=== PATIENT | female | born 1935 | race Hispanic/Latino ===

== ENCOUNTER 2021-05-14 23:09 | Inpatient (IN) | payer OTHER, MEDICARE ==
[~2021-05-14] VITALS: Ht 152.4 cm; Wt 63.7 kg
[2021-05-15] MEDS ORDERED: ONDANSETRON 4MG INJ IVP ONE
[2021-05-15] MEDS ORDERED: MORPHINE 4 MG SYG IVP ONE
[2021-05-15] MEDS ORDERED: LACTATED RINGERS 1000ML 1,000 ML IV ONE
[2021-05-15 00:02] LABS: BASOPHILS % (AUTO) 0.1 % (0.0-5.0); HEMATOCRIT 28.3 % (36-48); LYMPHOCYTES % (AUTO) 7.3 % (21.0-51.0); MEAN CORPUSCULAR HEMOGLOBIN 30.2 pg (27.0-33.0); MEAN CORPUSCULAR HGB CONC 34.3 g/dL (32.0-36.0); MEAN CORPUSCULAR VOLUME 88.2 fL (79-99); MONOCYTES % (AUTO) 7.4 % (3.0-13.0); NEUTROPHILS % (AUTO) 84.7 % (40.0-77.0); PLATELET COUNT (AUTO) 254 K/uL (130-400); RED BLOOD CELL COUNT(AUTO) 3.21 MIL/uL (4.00-5.50); RED CELL DISTRIBUTION WIDTH 12.1 % (11.0-15.5); WHITE BLOOD COUNT (AUTO) 20.5 K/uL (4.8-10.8)
[2021-05-15 00:13] LABS: CREATININE 1.2 mg/dL (0.5-1.5); POTASSIUM 4.5 mmol/L (3.5-5.1)
[2021-05-15 00:16] LABS: PROTHROMBIN TIME 10.9 SEC (9.6-11.6)
[2021-05-15 00:17] LABS: PARTIAL THROMBOPLASTIN TIME 22.1 SEC (26.3-35.5)
[2021-05-15 00:36] LABS: ALBUMIN 4.4 g/dL (3.5-5.0); BILIRUBIN,TOTAL 0.5 mg/dL (0.2-1.0); MAGNESIUM 1.7 mg/dL (1.80-2.40); TOTAL PROTEIN, SERUM 8.2 g/dL (6.0-8.3)
[2021-05-15] MEDS ORDERED: NITROGLYCERIN 1GM OINT 1 INCH/1GM TD ONE (03:19)
[2021-05-15] MEDS ORDERED: 0.9%NACL 1000ML 1,000 ML IV ONE (03:20)
[2021-05-15] MEDS: 0.9%NACL 1000ML 1,000 ML IV SCH ×2 (03:30→16:59)
[2021-05-15 03:35] VITALS: BP 132/67
[2021-05-15] MEDS ORDERED: CEFTRIAXONE 1G VIAL 1 GM in 0.9%NACL 100ML 100 ML IVP SCH (04:00)
[2021-05-15] MEDS ORDERED: PRAV20TA4 PO (04:19)
[2021-05-15] MEDS ORDERED: ALEN70TA80 PO (04:19)
[2021-05-15] MEDS ORDERED: ESOM40CA54 PO (04:19)
[2021-05-15] MEDS ORDERED: LISI1TAB51 PO (04:19)
[2021-05-15] MEDS ORDERED: LORA10TA7 PO (04:19)
[2021-05-15] MEDS ORDERED: NAPR-1192 PO (04:19)
[2021-05-15] MEDS ORDERED: DULO20CA18 PO (04:19)
[2021-05-15] MEDS ORDERED: ACET-2743 PO (04:19)
[2021-05-15] MEDS ORDERED: GLUCAGON 1MG KIT 1 MG ML IM PRN (04:30)
[2021-05-15] MEDS ORDERED: DEXTROSE 50%-WATER 50 ML DISP.SYRIN IV PRN (04:30)
[2021-05-15] MEDS: MORPHINE 2 MG SYG IVP PRN ×2 (04:31→16:59)
[2021-05-15] MEDS ORDERED: NITROGLYCERIN 1GM OINT 1 INCH/1GM TD SCH (06:00)
[2021-05-15] MEDS: INSULIN R PO SS1 SQ SCH ×4 (06:35→21:00)
[2021-05-15 07:30] VITALS: BP 100/52
[2021-05-15] MEDS: ASPIRIN 325MG TAB PO SCH (08:43)
[2021-05-15 11:00] VITALS: BP 115/53
[2021-05-15] MEDS ORDERED: MAGNESIUM 2GM PREMIX 50ML 50 ML IV PRN (12:00)
[2021-05-15] MEDS: METOPROLOL TARTRATE 25 MG TAB PO SCH ×3 (14:00→20:18)
[2021-05-15] MEDS ORDERED: CEFTRIAXONE 1G VIAL IVP SCH (16:00)
[2021-05-15 16:25] VITALS: BP 117/61
[2021-05-15] MEDS: NITROGLYCERIN 1GM OINT 1 INCH/1GM TD SCH ×3 (16:33→23:02)
[2021-05-15] MEDS: ATORVASTATIN 20 MG TABLET PO SCH (16:34)
[2021-05-15] MEDS: PANTOPRAZOLE 40 MG TAB DR PO SCH (16:35)
[2021-05-15 17:19] LABS: APPEARANCE,URINE Cloudy (CLEAR); BILIRUBIN,URINE Negative (NEGATIVE); COLOR,URINE Yellow (YELLOW); GLUCOSE, URINE (UA) Negative (NEGATIVE); KETONES,URINE Negative (NEGATIVE); LEUKOCYTE ESTERASE ,URINE Large (NEGATIVE); NITRATE,URINE Negative (NEGATIVE); OCCULT BLOOD,URINE Negative (NEGATIVE); PH,URINE 5.5 (5.0-8.0); PROTEIN,URINE Negative (NEGATIVE)
[2021-05-15 17:37] LABS: RBC,URINE 0-1 /HPF (0-1)
[2021-05-15 17:38] LABS: BACTERIA,URINE Few /HPF (None Seen); SQUAMOUS EPITHELIAL CELL,UR Moderate /HPF (0-2); WBC,URINE 26-50 /HPF (0-1)
[2021-05-15 17:39] LABS: MUCUS,URINE Rare LPF (None Seen)
[2021-05-15 21:15] VITALS: BP 101/54
[2021-05-16 00:17] VITALS: BP 102/55
[2021-05-16 04:17] VITALS: BP 100/52
[2021-05-16 04:40] LABS: HEMOGLOBIN A1C 7.3 % (4.0-6.0)
[2021-05-16] MEDS: NITROGLYCERIN 1GM OINT 1 INCH/1GM TD SCH ×3 (05:05→17:16)
[2021-05-16] MEDS: INSULIN R PO SS1 SQ SCH ×4 (05:12→20:25)
[2021-05-16] MEDS: 0.9%NACL 1000ML 1,000 ML IV SCH ×2 (06:10→19:30)
[2021-05-16 06:37] LABS: BASOPHILS % (AUTO) 0.5 % (0.0-5.0); EOSINOPHILS % (AUTO) 1.6 % (0.0-8.0); HEMATOCRIT 21.1 % (36-48); LYMPHOCYTES % (AUTO) 26.3 % (21.0-51.0); MEAN CORPUSCULAR HEMOGLOBIN 30.3 pg (27.0-33.0); MEAN CORPUSCULAR HGB CONC 34.1 g/dL (32.0-36.0); MEAN CORPUSCULAR VOLUME 88.7 fL (79-99); MONOCYTES % (AUTO) 11.9 % (3.0-13.0); NEUTROPHILS % (AUTO) 59.2 % (40.0-77.0); PLATELET COUNT (AUTO) 150 K/uL (130-400); RED BLOOD CELL COUNT(AUTO) 2.38 MIL/uL (4.00-5.50); RED CELL DISTRIBUTION WIDTH 12.5 % (11.0-15.5); WHITE BLOOD COUNT (AUTO) 8.9 K/uL (4.8-10.8)
[2021-05-16 07:11] LABS: ALBUMIN 3.2 g/dL (3.5-5.0); BILIRUBIN,TOTAL 0.5 mg/dL (0.2-1.0); MAGNESIUM 2.2 mg/dL (1.80-2.40); POTASSIUM 4.1 mmol/L (3.5-5.1); TOTAL PROTEIN, SERUM 6.2 g/dL (6.0-8.3)
[2021-05-16 07:30] VITALS: BP 101/51
[2021-05-16] MEDS: METOPROLOL TARTRATE 25 MG TAB PO SCH ×3 (08:46→20:20)
[2021-05-16] MEDS: ASPIRIN 325MG TAB PO SCH (08:46)
[2021-05-16] MEDS: PANTOPRAZOLE 40 MG TAB DR PO SCH (08:46)
[2021-05-16] MEDS: ATORVASTATIN 20 MG TABLET PO SCH (08:46)
[2021-05-16] MEDS: MORPHINE 2 MG SYG IVP PRN ×2 (09:11→17:29)
[2021-05-16 11:00] VITALS: BP 112/53
[2021-05-16 16:00] VITALS: BP 113/47
[2021-05-16 19:00] VITALS: BP 116/61
[2021-05-17] VITALS: BP 110/61
[2021-05-17] MEDS: MORPHINE 2 MG SYG IVP PRN ×3 (02:41→22:53)
[2021-05-17 03:52] LABS: MEAN CORPUSCULAR HEMOGLOBIN 29.9 pg (27.0-33.0); MEAN CORPUSCULAR HGB CONC 33.3 g/dL (32.0-36.0); MEAN CORPUSCULAR VOLUME 89.7 fL (79-99); RED BLOOD CELL COUNT(AUTO) 2.34 MIL/uL (4.00-5.50); RED CELL DISTRIBUTION WIDTH 12.4 % (11.0-15.5); WHITE BLOOD COUNT (AUTO) 10.3 K/uL (4.8-10.8)
[2021-05-17 04:00] VITALS: BP 119/56
[2021-05-17 04:08] LABS: CREATININE 0.9 mg/dL (0.5-1.5); POTASSIUM 4.8 mmol/L (3.5-5.1)
[2021-05-17] MEDS: INSULIN R PO SS1 SQ SCH ×3 (04:15→20:22)
[2021-05-17] MEDS ORDERED: CEFTRIAXONE 1G VIAL IVP SCH (08:00)
[2021-05-17] MEDS: ATORVASTATIN 20 MG TABLET PO SCH (08:22)
[2021-05-17] MEDS: PANTOPRAZOLE 40 MG TAB DR PO SCH (08:22)
[2021-05-17] MEDS: ISOSORBIDE MONO 30MG SR TAB PO SCH (08:22)
[2021-05-17] MEDS: ASPIRIN 81 MG EC TAB PO SCH (08:22)
[2021-05-17 08:23] VITALS: BP 134/52
[2021-05-17] MEDS: 0.9%NACL 1000ML 1,000 ML IV SCH (08:24)
[2021-05-17] MEDS: METOPROLOL TARTRATE 25 MG TAB PO SCH ×2 (08:25→20:21)
[2021-05-17] MEDS: LISINOPRIL 5 MG TABLET PO SCH (09:30)
[2021-05-17] MEDS: LEVOFLOXACIN 500 MG TABLET PO SCH (10:27)
[2021-05-17 11:18] VITALS: BP 118/62
[2021-05-17] MEDS ORDERED: TRAMADOL HCL 50 MG TABLET PO PRN (12:00)
[2021-05-17] MEDS ORDERED: FUROSEMIDE 20MG VIAL IV SCH (15:00)
[2021-05-17 16:00] VITALS: BP 136/68
[2021-05-17 19:00] VITALS: BP 143/68
[2021-05-17 21:41] LABS: HEMATOCRIT 24.4 % (36-48)
[2021-05-18] VITALS: BP 132/58
[2021-05-18 04:00] VITALS: BP 126/56
[2021-05-18 04:26] LABS: BASOPHILS % (AUTO) 0.4 % (0.0-5.0); EOSINOPHILS % (AUTO) 1.3 % (0.0-8.0); HEMATOCRIT 24.4 % (36-48); LYMPHOCYTES % (AUTO) 28.2 % (21.0-51.0); MEAN CORPUSCULAR HEMOGLOBIN 29.3 pg (27.0-33.0); MEAN CORPUSCULAR HGB CONC 33.6 g/dL (32.0-36.0); MEAN CORPUSCULAR VOLUME 87.1 fL (79-99); MONOCYTES % (AUTO) 12.7 % (3.0-13.0); NEUTROPHILS % (AUTO) 56.7 % (40.0-77.0); PLATELET COUNT (AUTO) 224 K/uL (130-400); RED CELL DISTRIBUTION WIDTH 13.3 % (11.0-15.5); WHITE BLOOD COUNT (AUTO) 8.9 K/uL (4.8-10.8)
[2021-05-18] MEDS: INSULIN R PO SS1 SQ SCH ×2 (06:50→11:30)
[2021-05-18 07:30] VITALS: BP 143/60
[2021-05-18] MEDS: ASPIRIN 81 MG EC TAB PO SCH (07:58)
[2021-05-18] MEDS: LEVOFLOXACIN 500 MG TABLET PO SCH (07:58)
[2021-05-18] MEDS: ISOSORBIDE MONO 30MG SR TAB PO SCH (07:58)
[2021-05-18] MEDS: PANTOPRAZOLE 40 MG TAB DR PO SCH (07:58)
[2021-05-18] MEDS: LISINOPRIL 5 MG TABLET PO SCH (07:59)
[2021-05-18] MEDS: ATORVASTATIN 20 MG TABLET PO SCH (07:59)
[2021-05-18] MEDS: METOPROLOL TARTRATE 25 MG TAB PO SCH (07:59)
[2021-05-18] MEDS ORDERED: LEVO500T90 PO (08:14)
[2021-05-18] MEDS ORDERED: IBUP-2077 PO (08:14)
[2021-05-18] MEDS ORDERED: ASPI-1197 PO (08:14)
[2021-05-18] MEDS ORDERED: NAPROXEN 250 MG TAB PO PRN (08:30)
[2021-05-18] MEDS ORDERED: ACETAMINOPHEN 500 MG TABLET PO PRN (08:30)
[2021-05-18] MEDS ORDERED: LORATADINE 10 MG TABLET PO SCH (09:00)
[2021-05-18] MEDS ORDERED: LISINOPRIL 20 MG TABLET PO SCH (09:00)
[2021-05-18] MEDS ORDERED: HYDROCHLOROTHIAZIDE 25 MG TABLET PO SCH (09:00)
[2021-05-18] MEDS ORDERED: METO-391 PO (09:22)
[2021-05-18] MEDS ORDERED: LISI2.5T13 PO (09:22)
[2021-05-18 11:00] VITALS: BP 112/49
[2021-05-18] MEDS ORDERED: DULOXETINE HCL 20 MG PO SCH (21:00)
[2021-05-18] MEDS ORDERED: SIMVASTATIN 20 MG TABLET PO SCH (21:00)
[2021-05-19] MEDS ORDERED: ALENDRONATE SODIUM 35 MG TAB PO SCH (06:30)
[2021-05-19] MEDS ORDERED: PANTOPRAZOLE 40 MG TAB DR PO SCH (07:30)
== END 2021-05-18 17:51 | disposition home or self-care (01) | DRG 154 ==
LOC: EDH 23:09 → EDHIP 05-15 02:20 → OBSVTOIN 05-15 02:20 → 4AH 05-15 03:35
PROVIDERS: ADMIT Internal Medicine; ATTEND Internal Medicine
PROC: 30233N1 Transfusion of Nonautologous Red Blood Cells into Peripheral Vein, Percutaneous Approach (ICD-10-PCS; principal; 2021-05-17)
DX: S02.2XXA Fracture of nasal bones, initial encounter for closed fracture (principal); I21.A1 Myocardial infarction type 2; S42.201A Unspecified fracture of upper end of right humerus, initial encounter for closed fracture; M62.82 Rhabdomyolysis; I45.2 Bifascicular block; E87.1 Hypo-osmolality and hyponatremia; N39.0 Urinary tract infection, site not specified; E11.9 Type 2 diabetes mellitus without complications; E78.00 Pure hypercholesterolemia, unspecified; E78.5 Hyperlipidemia, unspecified; I10 Essential (primary) hypertension; D64.9 Anemia, unspecified; S50.11XA Contusion of right forearm, initial encounter; B96.4 Proteus (mirabilis) (morganii) as the cause of diseases classified elsewhere; I07.1 Rheumatic tricuspid insufficiency; M19.90 Unspecified osteoarthritis, unspecified site; F32.A Depression, unspecified; Z96.611 Presence of right artificial shoulder joint; W01.0XXA Fall on same level from slipping, tripping and stumbling without subsequent striking against object, initial encounter; Y93.E5 Activity, floor mopping and cleaning; Y92.098 Other place in other non-institutional residence as the place of occurrence of the external cause; Y99.8 Other external cause status; Z88.0 Allergy status to penicillin; Z79.82 Long term (current) use of aspirin; Z79.83 Long term (current) use of bisphosphonates; Z79.899 Other long term (current) drug therapy
CPT/HCPCS: 36415; 36430; 70450; 70486; 71045; 72125; 73030; 73200; 80048; 80053; 80061; 81001; 82550; 82948; 83036; 83735; 83874; 83880; 84484; 85014; 85018; 85025; 85027; 85610; 85730; 86850; 86900; 86901; 86923; 87077; 87088; 87186; 93005; 93306; 93356; 97039; G0378; J0696; J1815; J1940; J2270; J2405; J3475; J7030; P9016

== ENCOUNTER 2023-03-29 19:39 | Emergency (ER) | payer OTHER, MEDICARE ==
[~2023-03-29] VITALS: Ht 157.5 cm; Wt 58.1 kg
[~2023-03-29 19:39] MED LIST: ACET-2743 PO; ALEN70TA80 PO; ASPI-1197 PO; DULO20CA18 PO; ESOM40CA54 PO; IBUP-2077 PO; LEVO-70 PO; LISI2.5T13 PO; LORA10TA7 PO; METO-391 PO; PRAV20TA4 PO
[2023-03-29] MEDS ORDERED: CLONIDINE HCL 0.2 MG TABLET PO ONE (22:30)
[2023-03-29 22:54] LABS: BASOPHILS # (AUTO) 0.05 K/uL (0.00-0.20); BASOPHILS % (AUTO) 0.6 % (0.0-5.0); EOSINOPHILS # (AUTO) 0.08 K/uL (0.00-0.70); EOSINOPHILS % (AUTO) 0.9 % (0.0-8.0); HEMATOCRIT 34.8 % (36-48); IMMATURE GRANULOCYTE ABSOLUTE 0.04 K/uL (0-1); LYMPHOCYTES # (AUTO) 2.6 K/uL (1.0-4.8); LYMPHOCYTES % (AUTO) 28.5 % (21.0-51.0); MEAN CORPUSCULAR HEMOGLOBIN 30.7 pg (27.0-33.0); MEAN CORPUSCULAR HGB CONC 33.3 g/dL (32.0-36.0); MEAN CORPUSCULAR VOLUME 92.1 fL (79-99); MONOCYTES # (AUTO) 0.6 K/uL (0.1-1.0); MONOCYTES % (AUTO) 6.5 % (3.0-13.0); NEUTROPHILS # (AUTO) 5.7 K/uL (1.8-7.7); NEUTROPHILS % (AUTO) 63.1 % (40.0-77.0); PLATELET COUNT (AUTO) 286 K/uL (130-400); RED BLOOD CELL COUNT(AUTO) 3.78 MIL/uL (4.00-5.50); WHITE BLOOD COUNT (AUTO) 9.1 K/uL (4.8-10.8)
[2023-03-29 23:08] VITALS: BP 132/68; PULSE 78; RESP 16; O2SAT 98
[2023-03-29 23:08] LABS: CREATININE 0.9 mg/dL (0.5-1.5); POTASSIUM 4.2 mmol/L (3.5-5.1)
[2023-03-29 23:13] LABS: ALBUMIN 4.3 g/dL (3.5-5.0); BILIRUBIN,TOTAL 0.4 mg/dL (0.2-1.0); TOTAL PROTEIN, SERUM 8.7 g/dL (6.0-8.3)
[2023-03-29] MEDS ORDERED: CLON0.1T2 PO (23:18)
== END 2023-03-29 23:48 | disposition home or self-care (01) ==
LOC: EDH 19:39
DX: I10 Essential (primary) hypertension (principal); E78.00 Pure hypercholesterolemia, unspecified; Z88.0 Allergy status to penicillin; Z90.49 Acquired absence of other specified parts of digestive tract
CPT/HCPCS: 36415; 80053; 84484; 85025; 93005

== ENCOUNTER → 2023-04-24 | Outpatient (CLI) | payer OTHER, MEDICARE ==
[~2023-04-24] MED LIST changes: +CLON0.1T2 PO
== END | disposition home or self-care (01) ==
LOC: RAH 13:34
PROVIDERS: ATTEND Internal Medicine
DX: Z01.31 Encounter for examination of blood pressure with abnormal findings (principal); I70.203 Unspecified atherosclerosis of native arteries of extremities, bilateral legs
CPT/HCPCS: 93930